=== PATIENT | male | born 1990 ===

== ENCOUNTER 2018-01-10 20:38 | Emergency (ER) | payer SELFPAY ==
--- NOTE | 2018-01-10 20:46 | ER Report ---
History and Physical Time Seen By MD: 20:45 Hx. of Stated Complaint: Patien complains of chest pain. Happened a week ago and was the worst panic attack he had ever had. Therapist told him to present to the ER if it happened again HPI/ROS CHIEF COMPLAINT: Chest pain, anxiety HISTORY OF PRESENT ILLNESS: 27-year-old male presents with severe chest pain. He notes chest tightness. He has a history of mental health disorder and anxiety. Episode one week ago that resolved spontaneously. She was told by his therapist that he had another episode to come to the ER. Patient's now been having 2 hours of severe sharp chest pain and tightness. Patient has no nausea, shortness of breath or diaphoresis to suggest cardiac etiology. He's had no leg swelling or calf pain. REVIEW OF SYSTEMS: Respiratory: No cough, no dyspnea. Cardiovascular: As above Gastrointestinal: No vomiting, no abdominal pain. Musculoskeletal: No back pain. Allergies: Coded Allergies: No Known Drug Allergies (Unverified , 01/10/18) Home Meds Active Scripts Lorazepam (ATIVAN) 1 Mg Tablet, 1 MG PO Q6-8H Y for ANXIETY, #15 Prov:JUAN AU DO 01/10/18 Reported Medications Lamotrigine (LAMOTRIGINE) 200 Mg Tab.er.24, 200 MG PO DAILY 01/10/18 Hydroxyzine Pamoate (VISTARIL) 50 Mg Capsule, 50 MG PO DAILY, CAPSULE 01/10/18 Hydroxyzine Pamoate (VISTARIL) 25 Mg Capsule, 25 MG PO DAILY, CAPSULE 01/10/18 Quetiapine Fumarate (SEROQUEL XR) 150 Mg Tab.er.24h, 150 MG PO DAILY 01/10/18 Reviewed Nurses Notes: Yes Old Medical Records Reviewed: Yes Constitutional Vital Sign - Last 24 Hours 01/10/18 01/10/18 01/10/18 01/10/18 20:41 20:45 21:15 21:27 Temp 98.2 Pulse 116 111 105 Resp 25 11 22 B/P (MAP) 161/99 121/86 (98) Pulse Ox 92 92 92 O2 Delivery Room Air 01/10/18 01/10/18 01/10/18 21:30 21:45 22:10 Pulse 86 86 85 Resp 9 8 16 B/P (MAP) 121/93 (102) 115/80 (92) Pulse Ox 91 92 92 O2 Delivery Room Air Physical Exam General Appearance: patient is alert, has no immediate need for airway protection and no current signs of toxicity. Vital signs stable, afebrile, pulse ox normal Eyes: Pupils equal and round no injection. Respiratory: Chest is non tender, lungs are clear to auscultation.+ Chest wall tenderness Cardiac: regular rate and rhythm Gastrointestinal: Abdomen is soft and non tender, no masses, bowel sounds normal. Musculoskeletal: Neck: Neck is supple and non tender. No lymphadenopathy Extremities have full range of motion and are non tender. No calf tenderness or edema Skin: No rashes or lesions. DIFFERENTIAL DIAGNOSIS: After history and physical exam differential diagnosis was considered for chest pain including but not limited to myocardial ischemia, pericarditis pulmonary embolus, chest wall pain, pleural inflammation, anxiety, panic attack and pulmonary infectious causes. Medical Decision Making Data Points Result Diagram: 01/10/18204401/10/182044 Laboratory Hematology Test 01/10/18 20:45 Red Blood Count 5.43 M/uL (4.00-5.60) Mean Corpuscular Volume 82.1 fL (80.0-96.0) Mean Corpuscular Hemoglobin 29.5 pg (26.0-33.0) Mean Corpuscular Hemoglobin Concent 36.0 g/dL (32.0-36.0) Red Cell Distribution Width 13.1 % (11.5-14.5) Mean Platelet Volume 7.9 fL (7.2-11.1) Neutrophils (%) (Auto) 44.5 % (39.4-72.5) Lymphocytes (%) (Auto) 42.2 % (17.6-49.6) Monocytes (%) (Auto) 9.8 % (4.1-12.4) Eosinophils (%) (Auto) 2.6 % (0.4-6.7) Basophils (%) (Auto) 0.9 % (0.3-1.4) Nucleated RBC Relative Count (auto) 0.0 /100WBC Neutrophils # (Auto) 3.6 K/uL (2.0-7.4) Lymphocytes # (Auto) 3.4 K/uL (1.3-3.6) Monocytes # (Auto) 0.8 K/uL (0.3-1.0) Eosinophils # (Auto) 0.2 K/uL (0.0-0.5) Basophils # (Auto) 0.1 K/uL (0.0-0.1) Nucleated RBC Absolute Count (auto) 0.00 K/uL D-Dimer Quantitative (PE/DVT) < 0.27 ug/ml (0-0.50) Sodium Level 140 mmol/L (137-145) Potassium Level 3.8 mmol/L (3.5-5.0) Chloride Level 103 mmol/L (98-107) Carbon Dioxide Level 25 mmol/L (22-30) Blood Urea Nitrogen 9 mg/dl (9-21) Creatinine 0.90 mg/dl (0.66-1.25) Glomerular Filtration Rate Calc > 60.0 Random Glucose 98 mg/dl (75-110) Calcium Level 8.7 mg/dl (8.4-10.2) Total Bilirubin 0.3 mg/dl (0.2-1.3) Aspartate Amino Transf (AST/SGOT) 37 U/L (0-35) Alanine Aminotransferase (ALT/SGPT) 44 U/L (0-56) Alkaline Phosphatase 57 U/L (0-126) Troponin I < 0.012 ng/ml Total Protein 7.2 g/dl (6.3-8.2) Albumin 4.2 g/dl (3.5-5.0) Chemistry Test 01/10/18 20:45 White Blood Count 8.1 k/uL (4.5-11.0) Red Blood Count 5.43 M/uL (4.00-5.60) Hemoglobin 16.1 g/dL (14.0-18.0) Hematocrit 44.6 % (42.0-52.0) Mean Corpuscular Volume 82.1 fL (80.0-96.0) Mean Corpuscular Hemoglobin 29.5 pg (26.0-33.0) Mean Corpuscular Hemoglobin Concent 36.0 g/dL (32.0-36.0) Red Cell Distribution Width 13.1 % (11.5-14.5) Platelet Count 289 K/uL (150-450) Mean Platelet Volume 7.9 fL (7.2-11.1) Neutrophils (%) (Auto) 44.5 % (39.4-72.5) Lymphocytes (%) (Auto) 42.2 % (17.6-49.6) Monocytes (%) (Auto) 9.8 % (4.1-12.4) Eosinophils (%) (Auto) 2.6 % (0.4-6.7) Basophils (%) (Auto) 0.9 % (0.3-1.4) Nucleated RBC Relative Count (auto) 0.0 /100WBC Neutrophils # (Auto) 3.6 K/uL (2.0-7.4) Lymphocytes # (Auto) 3.4 K/uL (1.3-3.6) Monocytes # (Auto) 0.8 K/uL (0.3-1.0) Eosinophils # (Auto) 0.2 K/uL (0.0-0.5) Basophils # (Auto) 0.1 K/uL (0.0-0.1) Nucleated RBC Absolute Count (auto) 0.00 K/uL D-Dimer Quantitative (PE/DVT) < 0.27 ug/ml (0-0.50) Glomerular Filtration Rate Calc > 60.0 Calcium Level 8.7 mg/dl (8.4-10.2) Total Bilirubin 0.3 mg/dl (0.2-1.3) Aspartate Amino Transf (AST/SGOT) 37 U/L (0-35) Alanine Aminotransferase (ALT/SGPT) 44 U/L (0-56) Alkaline Phosphatase 57 U/L (0-126) Troponin I < 0.012 ng/ml Total Protein 7.2 g/dl (6.3-8.2) Albumin 4.2 g/dl (3.5-5.0) Coagulation Test 01/10/18 20:45 D-Dimer Quantitative (PE/DVT) < 0.27 ug/ml EKG/Imaging EKG Interpretation 12 lead EK Rhythm: Sinus tachycardia, rate 112 [place]: normal QRS: normal ST segments: normal Imaging X-ray: Single view portable chest x-ray was obtained. I viewed the images myself on the PACS system. My interpretation of the images is: No infiltrate, no effusion, normal mediastinum. The radiologist interpretation had no clinically significant variation from this interpretation. ED Course/Re-evaluation ED Course Patient was admitted to an examination room. H&P was done. The differential diagnoses was considered. Patient had a normal EKG. Patient was medicated for anxiety with Ativan. He is also given Toradol for chest wall pain. On reevaluation the patient feels better. He does not want anything stronger for pain relief. He still notes some chest pain. He also developed a headache was treated with Tylenol by mouth. Patient's discharged home with a prescription of Ativan for anxiety and panic attack. He is advised to follow-up with his therapist and primary care. Decision to Disposition Date: Jan 10, 2018 Decision to Disposition Time: 21:26 Depart Departure Latest Vital Signs Vital Signs Date Time Temp Pulse Resp B/P (MAP) Pulse Ox O2 Delivery O2 Flow Rate FiO2 01/10/18 22:10 85 16 115/80 (92) 92 Room Air 01/10/18 20:41 98.2 Impression: Primary Impression: Chest pain Additional Impression: Panic attack Condition: Improved Disposition: HOME OR SELF-CARE Referrals: THAIS MCMANUS MD, FARRUKH MD New Scripts Lorazepam (ATIVAN) 1 Mg Tablet 1 MG PO Q6-8H Y for ANXIETY, #15 Prov: JUAN AU DO 01/10/18 Patient Instructions: Chest Pain (ED), Panic Attack (ED) Additional Instructions: Take ibuprofen 200 mg 3 tablets 3 times a day for inflammatory chest pain relief as needed with food Follow-up with therapist Follow-up with primary care doctor if you do not have one information was provided for one Problem Qualifiers Primary Impression: Chest pain Chest pain type: unspecified Qualified Codes: R07.9 - Chest pain, unspecified JUAN AU DO Jan 10, 2018 20:46
[2018-01-10] MEDS ORDERED: QUET150T3 PO (20:49)
[2018-01-10] MEDS ORDERED: HYDR25CA83 PO (20:49)
[2018-01-10] MEDS ORDERED: HYDR50CA47 PO (20:49)
[2018-01-10] MEDS ORDERED: LAMO200T3 PO (20:49)
[2018-01-10] MEDS ORDERED: LORazepam 1 MG TAB PO ONE (21:00)
[2018-01-10 21:01] LABS: PLATELET COUNT, AUTOMATED 289 K/uL (150-450)
[2018-01-10] MEDS ORDERED: KETOROLAC 30 MG/ML VIAL IVP ONE (21:25)
[2018-01-10] MEDS ORDERED: LORA-1456 PO (21:28)
--- NOTE | 2018-01-10 21:29 | RADIOLOGY IMAGING REPORT ---
FACILITY: [facility] - [place] PATIENT NAME: Herbert Castro : 1990 MR: [id number] V: [id number] EXAM DATE: ORDERING PHYSICIAN: JUAN AU TECHNOLOGIST: Location: [facility] Patient: Herbert Castro : 1990 Visit/Account:[id number] Date of Sevice: 01/10/2018 EXAMINATION: Portable AP Chest HISTORY: Chest pain. COMPARISON: None. FINDINGS: The lungs are clear. No focal consolidation or pleural effusion. No pneumothorax. Normal cardiomedi astinal silhouette, with normal heart size and pulmonary vascularity. Visualized osseous structures are unremarkable. IMPRESSION: Negative chest. Report Dictated By: Griffin Mathisa MD at 01/10/2018 9:23 PM Report E-Signed By: Griffin Mathias MD at 01/10/2018 9:25 PM [id number]
--- NOTE | 2018-01-10 21:36 | EKG ---
FACILITY: [facility] - [place] PATIENT NAME: TOO STEPHEN : [id number] MR: [id number] V: [id number] EXAM DATE: ORDERING PHYSICIAN: JUAN AU TECHNOLOGIST: SHALONDA Test Reason : CHEST PAIN Blood Pressure : / mmHG Vent. Rate : 112 BPM Atrial Rate : 112 BPM P-R Int : 130 ms QRS Dur : 088 ms QT Int : 344 ms P-R-T Axes : 032 044 030 degrees QTc Int : 469 ms Sinus tachycardia Otherwise normal ECG No previous ECGs available Confirmed by TATYANA FUENTES ([id number]) on 01/11/2018 2:50:29 PM Referred By: Confirmed By:TATYANA FUENTES
[2018-01-10] MEDS ORDERED: ACETAMINOPHEN 325 MG TAB PO ONE (21:45)
[2018-01-10 22:10] VITALS: BP 115/80
== END 2018-01-10 22:14 | disposition home or self-care (01) ==
LOC: ER 20:46
DX: F41.0 Panic disorder [episodic paroxysmal anxiety] (principal); R07.9 Chest pain, unspecified; R00.0 Tachycardia, unspecified
CPT/HCPCS: 71045; 84484; 85025; 85379; 93005; 96374; 99284; J1885; 82040; 82247; 82310; 82374; 82435; 82565; 82947; 84075; 84132; 84155; 84295; 84450; 84460; 84520

== ENCOUNTER 2018-09-05 21:42 | Emergency (ER) | payer SELFPAY ==
[~2018-09-05 21:42] MED LIST: HYDR25CA83 PO; HYDR50CA47 PO; LAMO200T3 PO; LORA-1456 PO; QUET150T3 PO
--- NOTE | 2018-09-05 21:44 | ER Report ---
History and Physical Time Seen By MD: 21:44 HPI/ROS CHIEF COMPLAINT: Abdominal pain, headache HISTORY OF PRESENT ILLNESS: 28-year-old male presents ambulatory to the ER complaining of bilateral upper quadrant abdominal pain for 3 days. Patient describes sharp 8/10 pain migrating between the upper quadrants. Patient notes no alleviating or exacerbating factors. He notes some diarrhea. He notes nausea but no vomiting. He also notes a headache in the back of his head for 3 days. Patient notes no fever or chills. Patient denies consumption of bad food or exposure to ill contacts. Patient notes a dull headache in the posterior aspect of his neck for the last day or so. REVIEW OF SYSTEMS: Respiratory: No cough, no dyspnea. Cardiovascular: No chest pain, no palpitations. Gastrointestinal: As above Musculoskeletal: No back pain. Allergies: Coded Allergies: No Known Drug Allergies (Unverified , 01/10/18) Home Meds Active Scripts Lorazepam (ATIVAN) 1 Mg Tablet, 1 MG PO Q6-8H PRN for ANXIETY, #15 Prov:JUAN AU DO 01/10/18 Reported Medications Doxepin Hcl (DOXEPIN HCL) 50 Mg Capsule, 50 MG PO, CAPSULE 09/05/18 Lamotrigine (LAMOTRIGINE) 200 Mg Tab.er.24, 200 MG PO DAILY 01/10/18 Hydroxyzine Pamoate (VISTARIL) 50 Mg Capsule, 50 MG PO DAILY, CAPSULE 01/10/18 Hydroxyzine Pamoate (VISTARIL) 25 Mg Capsule, 25 MG PO DAILY, CAPSULE 01/10/18 Quetiapine Fumarate (SEROQUEL XR) 150 Mg Tab.er.24h, 150 MG PO DAILY 01/10/18 Reviewed Nurses Notes: Yes Old Medical Records Reviewed: Yes Hx Substance Use Disorder: Yes (patrizia) Hx Alcohol Use: No Constitutional Vital Sign - Last 24 Hours 09/05/18 09/05/18 09/05/18 09/05/18 21:42 21:48 21:49 22:00 Temp 97.5 Pulse ??? 93 Resp 18 B/P (MAP) 135/103 135/103 (114) 133/94 (107) Pulse Ox 93 O2 Delivery Room Air 09/05/18 09/05/18 09/05/18 09/05/18 22:12 22:30 22:42 23:00 Pulse 86 74 B/P (MAP) 123/97 (106) 118/78 (91) Pulse Ox 93 90 09/05/18 09/05/18 23:12 23:30 Pulse 89 B/P (MAP) 122/96 (105) Pulse Ox 93 Physical Exam General Appearance: The patient is alert, has no immediate need for airway protection and no current signs of toxicity. Vital signs stable, afebrile, pulse ox normal Eyes: Pupils equal and round no injection. Respiratory: Chest is non tender, lungs are clear to auscultation. Cardiac: regular rate and rhythm Gastrointestinal: Abdomen is soft mild tenderness in both upper quadrants, no rebound or guarding, no masses, bowel sounds normal. Musculoskeletal: Neck: Neck is supple and non tender. No lymphadenopathy Extremities have full range of motion and are non tender. Skin: No rashes or lesions. DIFFERENTIAL DIAGNOSIS: After history and physical exam differential diagnosis was considered for abdominal pain including but not limited to appendicitis, cholecystitis, gastritis and urinary tract infection. Additionally,headache including but not limited to subarachnoid hemorrhage, migraine headache, tension headache and infectious causes such as meningitis, pharyngitis and sinusitis. Medical Decision Making Data Points Result Diagram: 09/05/183 09/05/182212 Laboratory Hematology Test 09/05/18 21:50 09/05/18 22:13 Urine Color Yellow Urine Clarity Clear Urine pH 6.0 pH (4.8-9.5) Urine Specific [place] 1.015 Urine Protein Negative mg/dL (NEGATIVE) Urine Glucose (UA) Negative mg/dL (NEGATIVE) Urine Ketones Negative mg/dL (NEGATIVE) Urine Blood Negative (NEGATIVE) Urine Nitrite Negative (NEGATIVE) Urine Bilirubin Negative (NEGATIVE) Urine Urobilinogen Negative mg/dL (0.2-1.9) Urine Leukocyte Esterase Negative (NEGATIVE) Urine RBC <1 /HPF (0-2/HPF) Urine WBC <1 /HPF (0-5/HPF) Urine Squamous Epithelial Cells None /LPF (</=FEW) Urine Bacteria Negative /HPF (NONE-FEW) Urine Mucus None /HPF (NONE-FEW) Red Blood Count 5.62 M/uL (4.00-5.60) Mean Corpuscular Volume 83.4 fL (80.0-96.0) Mean Corpuscular Hemoglobin 28.7 pg (26.0-33.0) Mean Corpuscular Hemoglobin Concent 34.4 g/dL (32.0-36.0) Red Cell Distribution Width 13.5 % (11.5-14.5) Mean Platelet Volume 7.9 fL (7.2-11.1) Neutrophils (%) (Auto) 59.5 % (39.4-72.5) Lymphocytes (%) (Auto) 21.7 % (17.6-49.6) Monocytes (%) (Auto) 13.0 % (4.1-12.4) Eosinophils (%) (Auto) 4.2 % (0.4-6.7) Basophils (%) (Auto) 1.6 % (0.3-1.4) Nucleated RBC Relative Count (auto) 0.0 /100WBC Neutrophils # (Auto) 4.2 K/uL (2.0-7.4) Lymphocytes # (Auto) 1.5 K/uL (1.3-3.6) Monocytes # (Auto) 0.9 K/uL (0.3-1.0) Eosinophils # (Auto) 0.3 K/uL (0.0-0.5) Basophils # (Auto) 0.1 K/uL (0.0-0.1) Nucleated RBC Absolute Count (auto) 0.00 K/uL Sodium Level 137 mmol/L (137-145) Potassium Level 3.6 mmol/L (3.5-5.0) Chloride Level 105 mmol/L (98-107) Carbon Dioxide Level 27 mmol/L (22-30) Blood Urea Nitrogen 9 mg/dl (9-21) Creatinine 0.90 mg/dl (0.66-1.25) Glomerular Filtration Rate Calc > 60.0 Random Glucose 94 mg/dl (75-110) Calcium Level 8.9 mg/dl (8.4-10.2) Total Bilirubin 0.4 mg/dl (0.2-1.3) Aspartate Amino Transf (AST/SGOT) 33 U/L (0-35) Alanine Aminotransferase (ALT/SGPT) 54 U/L (0-56) Alkaline Phosphatase 72 U/L (0-126) Total Protein 7.2 g/dl (6.3-8.2) Albumin 4.4 g/dl (3.5-5.0) Amylase Level 49 U/L (0-110) Lipase 148 U/L (23-300) Chemistry Test 09/05/18 21:50 09/05/18 22:13 Urine Color Yellow Urine Clarity Clear Urine pH 6.0 pH (4.8-9.5) Urine Specific [place] 1.015 Urine Protein Negative mg/dL (NEGATIVE) Urine Glucose (UA) Negative mg/dL (NEGATIVE) Urine Ketones Negative mg/dL (NEGATIVE) Urine Blood Negative (NEGATIVE) Urine Nitrite Negative (NEGATIVE) Urine Bilirubin Negative (NEGATIVE) Urine Urobilinogen Negative mg/dL (0.2-1.9) Urine Leukocyte Esterase Negative (NEGATIVE) Urine RBC <1 /HPF (0-2/HPF) Urine WBC <1 /HPF (0-5/HPF) Urine Squamous Epithelial Cells None /LPF (</=FEW) Urine Bacteria Negative /HPF (NONE-FEW) Urine Mucus None /HPF (NONE-FEW) White Blood Count 7.1 k/uL (4.5-11.0) Red Blood Count 5.62 M/uL (4.00-5.60) Hemoglobin 16.1 g/dL (14.0-18.0) Hematocrit 46.8 % (42.0-52.0) Mean Corpuscular Volume 83.4 fL (80.0-96.0) Mean Corpuscular Hemoglobin 28.7 pg (26.0-33.0) Mean Corpuscular Hemoglobin Concent 34.4 g/dL (32.0-36.0) Red Cell Distribution Width 13.5 % (11.5-14.5) Platelet Count 262 K/uL (150-450) Mean Platelet Volume 7.9 fL (7.2-11.1) Neutrophils (%) (Auto) 59.5 % (39.4-72.5) Lymphocytes (%) (Auto) 21.7 % (17.6-49.6) Monocytes (%) (Auto) 13.0 % (4.1-12.4) Eosinophils (%) (Auto) 4.2 % (0.4-6.7) Basophils (%) (Auto) 1.6 % (0.3-1.4) Nucleated RBC Relative Count (auto) 0.0 /100WBC Neutrophils # (Auto) 4.2 K/uL (2.0-7.4) Lymphocytes # (Auto) 1.5 K/uL (1.3-3.6) Monocytes # (Auto) 0.9 K/uL (0.3-1.0) Eosinophils # (Auto) 0.3 K/uL (0.0-0.5) Basophils # (Auto) 0.1 K/uL (0.0-0.1) Nucleated RBC Absolute Count (auto) 0.00 K/uL Glomerular Filtration Rate Calc > 60.0 Calcium Level 8.9 mg/dl (8.4-10.2) Total Bilirubin 0.4 mg/dl (0.2-1.3) Aspartate Amino Transf (AST/SGOT) 33 U/L (0-35) Alanine Aminotransferase (ALT/SGPT) 54 U/L (0-56) Alkaline Phosphatase 72 U/L (0-126) Total Protein 7.2 g/dl (6.3-8.2) Albumin 4.4 g/dl (3.5-5.0) Amylase Level 49 U/L (0-110) Lipase 148 U/L (23-300) Urinalysis Test 09/05/18 21:50 Urine Color Yellow Urine Clarity Clear Urine pH 6.0 pH (4.8-9.5) Urine Specific [place] 1.015 Urine Protein Negative mg/dL (NEGATIVE) Urine Glucose (UA) Negative mg/dL (NEGATIVE) Urine Ketones Negative mg/dL (NEGATIVE) Urine Blood Negative (NEGATIVE) Urine Nitrite Negative (NEGATIVE) Urine Bilirubin Negative (NEGATIVE) Urine Urobilinogen Negative mg/dL (0.2-1.9) Urine Leukocyte Esterase Negative (NEGATIVE) Urine RBC <1 /HPF (0-2/HPF) Urine WBC <1 /HPF (0-5/HPF) Urine Squamous Epithelial Cells None /LPF (</=FEW) Urine Bacteria Negative /HPF (NONE-FEW) Urine Mucus None /HPF (NONE-FEW) ED Course/Re-evaluation Clinical Indication for ER IV: Hydration, IV Access ED Course Patient was admitted to an examination room. H&P was done. The differential diagnosis was considered. On clinical examination. Patient has benign nonsurgical abdomen. Patient's treated with IV fluids, Zofran and Toradol. His diagnostic studies are unremarkable. His headache resolves. He still has mild abdominal pain. He is advised clear liquid diet, to rest his intestines. Ibup rofen for pain relief. He's advised to use his hydroxyzine for nausea control. He is advised to follow-up with primary care if unimproved in 3-5 days. Decision to Disposition Date: Sep 05, 2018 Decision to Disposition Time: 22:55 Depart Departure Latest Vital Signs Vital Signs Date Time Temp Pulse Resp B/P (MAP) Pulse Ox O2 Delivery O2 Flow Rate FiO2 09/05/18 23:30 122/96 (105) 09/05/18 23:12 89 93 09/05/18 21:48 97.5 18 Room Air Impression: Primary Impression: Abdominal pain Additional Impressions: Diarrhea Tension headache Condition: Improved Disposition: HOME OR SELF-CARE Patient Instructions: Clear Liquid Diet (ED), Tension Headache (ED) Additional Instructions: Rest your stomach and intestines. Follow clear liquid diet for 24-48 hours, then advance through the brat diet, bananas, rice, applesauce and toast Use your hydroxyzine for nausea control. If you have any upset stomach Take ibuprofen 200 mg 3 tablets 3 times a day for pain relief Follow-up with primary care if unimproved in 3-5 days Problem Qualifiers Primary Impression: Abdominal pain Abdominal location: upper abdomen, unspecified Qualified Codes: R10.10 - Upper abdominal pain, unspecified Additional Impressions: Diarrhea Diarrhea type: unspecified type Qualified Codes: R19.7 - Diarrhea, unspecified JUAN AU DO Sep 05, 2018 21:44
[2018-09-05] MEDS ORDERED: DOXE50CA46 PO (21:54)
[2018-09-05] MEDS ORDERED: NS(*) 0.9% 1000 ML BAG 1,000 ML IV ONE (21:56)
[2018-09-05] MEDS ORDERED: KETOROLAC 30 MG/ML VIAL IVP ONE (22:00)
[2018-09-05 22:24] LABS: PLATELET COUNT, AUTOMATED 262 K/uL (150-450)
[2018-09-05 23:30] VITALS: BP 122/96
== END 2018-09-05 23:35 | disposition home or self-care (01) ==
LOC: ER 21:49
DX: R10.11 Right upper quadrant pain (principal); R10.12 Left upper quadrant pain; R19.7 Diarrhea, unspecified; G44.209 Tension-type headache, unspecified, not intractable
CPT/HCPCS: 81001; 82150; 83690; 85025; 96361; 96374; 99283; J1885; J7030; 82040; 82247; 82310; 82374; 82435; 82565; 82947; 84075; 84132; 84155; 84295; 84450; 84460; 84520